=== PATIENT | female | born 1975 | race Caucasian/White ===

== ENCOUNTER 2019-09-19 16:15 | Emergency (ER) | payer MEDICAID ==
[~2019-09-19] VITALS: Ht 154.9 cm; Wt 90.7 kg
[2019-09-19 16:25] VITALS: BP_SYST 144
--- NOTE | 2019-09-19 18:50 | NUR ---
Patient to ER bed 07 to gown for evaluation. Side rails up.
--- NOTE | 2019-09-19 18:51 | NUR ---
Patient is brought in complaining of nontraumatic severe pain to 2nd left finger x 2 days. Patient reports that she was at [facility] yesterday and unable to tolerate i & d and discharged with keflex and bactrim. Pain 10/10. Denies any nausea, vomiting and diarrhea. No other complaints/injuries per patient or as noted. will continue to monitor.
--- NOTE | 2019-09-19 18:53 | NUR ---
ABISAI Chandler examining patient.
[2019-09-19] MEDS ORDERED: LIDOCAINE 1% 10 MG/ML, 20 ML MDV INJ ONE (19:00)
[2019-09-19] MEDS ORDERED: NACL 0.9% 1,000 ML IV ONE (19:00)
[2019-09-19] MEDS ORDERED: CEFAZOLIN 1 GM IVPB PREMIX 50 ML IV ONE (19:00)
[2019-09-19] MEDS ORDERED: LORazepam 2 MG/ML VIAL IVP ONE ×2 (19:00)
--- NOTE | 2019-09-19 19:10 | NUR ---
# 20 gauge angiocath placed to RAC. Use of asceptic technique. Opsite placed over site. Blood return noted. Blood for lab drawn from site. Flushed with 10 cc of normal saline. No evidence of infiltration noted. Patient tolerated well. Blood cultures drawn, prior to administration of antibiotic.
--- NOTE | 2019-09-19 19:21 | NUR ---
I&D Procedure done by LAZARUS Chandler to Left 2nd finger using sterile technique. Lidocaine 1% used. minimal amt of bleeding noted. Wound care discussed w/ patient. Pt tolerated procedure well.
[2019-09-19] MEDS ORDERED: KETOROLAC TROMETHAMINE 30 MG VIAL IVP ONE (19:45)
[2019-09-19] MEDS ORDERED: MORPHINE 2 MG/ML INJ. SYRINGE IVP ONE (20:30)
[2019-09-19] MEDS ORDERED: DIPHENHYDRAMINE INJ 50 MG/ML VIAL IVP ONE (20:30)
[2019-09-19 21:05] VITALS: BP_SYST 136
--- NOTE | 2019-09-19 21:05 | NUR ---
Patient given written and verbal discharge instructions and verbalizes understanding. ER [employer]INTER ALEKSANDAR discussed with patient the results and treatment provided. Patient in stable condition. ID arm band removed. IV catheter removed intact and dressing applied, no active bleeding. Rx of Mupirocin, norco and motrin given. Patient educated on pain management and to follow up with PMD. Pain Scale 0/10. Opportunity for questions provided and answered. Medication side effect fact sheet provided.
== END 2019-09-19 21:05 | disposition home or self-care (01) ==
LOC: SED 16:15
DX: L03.012 Cellulitis of left finger (principal); R03.0 Elevated blood-pressure reading, without diagnosis of hypertension
CPT/HCPCS: 10060; 36415; 87040; 96365; 96375; 99283; J0690; J1200; J1885; J2001; J2060; J2270; J7030